=== PATIENT | male | born 1965 | race Hispanic/Latino ===

== ENCOUNTER → 2017-12-19 | Day surgery (SDC) | payer OTHER ==
[2017-12-18 12:59] LABS: ANION GAP 13.7 mmol/L (8-16); BLOOD UREA NITROGEN 9 mg/dL (7-26); BUN/CREATININE RATIO 11 (6-25); CALCIUM 9.8 mg/dL (8.4-10.2); CARBON DIOXIDE 24 mmol/L (22-29); CHLORIDE 110 mmol/L (98-107); CREATININE, SERUM 0.83 mg/dL (0.72-1.25); EST GLOMERULAR FILTRATION RATE > 60 ML/MIN (60-); GLUCOSE 171 mg/dL (74-118); POTASSIUM 4.7 mmol/L (3.5-5.1); SODIUM 143 mmol/L (136-145)
--- NOTE | 2017-12-18 13:07 | Diagnostic Imaging Report ---
PROCEDURE:CHEST 2 VIEWS TECHNIQUE:PA and lateral chest totaling 3 radiographs INDICATION:Preoperative evaluation COMPARISON:None. FINDINGS: Clear lungs. No pleural effusions. Normal heart size, mediastinal contour and vasculature. Intact skeleton. CONCLUSION: Normal chest. Dictated by: Duke Jeff M.D. on 12/18/2017 at 13:10 Electronically approved by: Duke Jeff M.D. on 12/18/2017 at 13:10
[~2017-12-19] MED LIST: ASPIR 8181 MG PO; BUPIVACAINE 0.25% 30ML SDV INJ ONE; CEFAZOLIN SOD 1 GM VIAL ONE; COZAAR25 MG PO; DEXAMETHASONE SOD PHOS INJ 4 MG/ML VIAL ONE; FENTANYL CITRATE/PF 100MCG/2 ML INJ ONE; GLIMEPIRIDE2 MG PO; KETOROLAC TROMETHAMINE 30 MG/ML VIAL ONE; LIDOCAINE HCL 2% LOCAL INJ 5 ML SDV VIAL INJ ONE; LOVASTATIN40 MG PO; METFORMIN HCL500 MG PO; MIDAZOLAM HCL 2 MG/2 ML VIAL ONE; NEOSTIGMINE 1 MG/ML 10ML VIAL ONE; ONDANSETRON HCL INJ 2 MG/ML VIAL ONE; PROPOFOL IV EMULSION 10 MG/ML 20 ML VIAL ONE; SEVOFLURANE INHAL SOLN 250 ML PEN BTL ONE
--- OUTSIDE RECORDS SUMMARY | 2017-12-19 06:00 | XMS REPORT ---
[facility] Address Unknown Phone Unavailable Care Team Providers Care Injection Mold Tooling Technician Name Role Phone FCO SANCHEZ Unavailable Unavailable Problems This patient has no known problems. Allergies, Adverse Reactions, Alerts This patient has no known allergies or adverse reactions. Medications This patient has no known medications. Results Test Description Test Time Test Comments Text Results Atomic Results Result Comments CHEST 2 VIEWS [place] [address] Patient Name: CELINA JONES MR # : [id number] : 1965 Age/Sex: 52/M Req #: [id number] Adm Physician: Ordered by: AVTAR GREENWOOD MD Report #: [id number] Location: OR Room/Bed: Procedure: 0522- 0030 DX/CHEST 2 VIEWS Exam Date: 12/18/17 Exam Time : 1245 REPORT STATUS: Signed PROCEDURE: CHEST 2 VIEWS TECHNIQUE: PA and lateral chest totaling 3 radiographs INDICATION: Preoperative evaluation COMPARISON: None. FINDINGS: Clear lungs. No pleural effusions. Normal heart size, mediastinal contour and vasculature. Intact skeleton. CONCLUSION: Normal chest. Dictated by: Iris Jeff M.D. on 12/18/2017 at 13:10 Electronically approved by : Iris Jeff M.D. on 12/18/2017 at 13:10 Dictated By : IRIS JEFF MD [id number] Transcribed By: CAROLINE on 12/18/17 131 COPY TO: AVTAR GREENWOOD MD
--- NOTE | 2018-01-27 01:01 | Operative Report ---
DATE OF PROCEDURE: December 19, 2017 PREOPERATIVE DIAGNOSES 1. Phimosis. 2. Foreskin lesion consistent with condyloma acuminatum. POSTOPERATIVE DIAGNOSES 1. Phimosis. 2. 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 PROCEDURES PERFORMED 1. Treatment of genital lesions. 2. Circumcision. 3. Penile nerve block (separately performed for postoperative pain control, not required for actual performance of surgery, which was under general anesthesia). ANESTHESIA: General. COMPLICATIONS: None. CLINICAL SUMMARY: Renny Ferrer is a 52-year-old man with phimosis. He is brought for circumcision. He was found to have genital lesions as well. He is brought for the above procedures. He is aware of the risks of bleeding, infection, injury to adjacent structures, and need for additional procedures and elected to proceed. OPERATIVE PROCEDURE IN DETAIL: Informed consent was verified. Renny Ferrer was properly identified, taken to the operating room, and placed on the operating table in supine position. Anesthesia was uneventfully begun. The patient's genitalia were prepared and draped in usual sterile fashion. Marcaine without epinephrine was then utilized to infiltrate subcutaneously circumferentially at the base of the penis as well as the region of the dorsal penile nerves. This was done for postoperative pain control and not required for the actual performance of surgery, which was under general anesthesia. A circumferential incision was then made overlying the thorne of the glans penis. The foreskin was slowly retracted and secondary incision made approximately 4 mm away from the thorne of the glans penis along the inner preputial skin. A sleeve circumcision was then performed. The foreskin was removed. Pinpoint electrocautery was utilized to achieve hemostasis. The patient's incision was then approximated with 4-0 chromic suture in running fashion. An excellent cosmetic result was achieved. We then excised penile lesion, fulgurated its base, and then reapproximated the wound with absorbable suture. Sterile dressing was applied of bacitracin ointment followed by loose fitting Kerline over Xeroform gauze, and the patient was uneventfully reversed from anesthesia and taken to recovery room in stable condition. There were no complications to the procedure. The patient tolerated the procedure well. Sponge, needle, and instrument counts were quoted correct x2 at the end of the case. Estimated blood loss was minimal. Explicit postoperative instructions were given, and we will follow the patient up in the office. Job#: [id number] JHONATHAN cc:YEN LYON MD
== END | disposition home or self-care (01) ==
LOC: OR 05:58
PROVIDERS: ATTEND Urology
DX: N47.1 Phimosis (principal); A63.0 Anogenital (venereal) warts; I10 Essential (primary) hypertension; E78.5 Hyperlipidemia, unspecified; E11.9 Type 2 diabetes mellitus without complications; K21.9 Gastro-esophageal reflux disease without esophagitis; F17.200 Nicotine dependence, unspecified, uncomplicated; Z01.810 Encounter for preprocedural cardiovascular examination; Z01.812 Encounter for preprocedural laboratory examination; Z01.818 Encounter for other preprocedural examination; Z79.82 Long term (current) use of aspirin; Z79.84 Long term (current) use of oral hypoglycemic drugs
CPT/HCPCS: 11420; 36415 ×2; 54161; 71046; 80048; 82948; 88304; 88305; 93005; J0690; J1100; J1885; J2001; J2250; J2405; J2710